=== PATIENT | male | born 1955 | race Caucasian/White ===

== ENCOUNTER 2020-11-23 15:29 | Emergency (ER) | payer SELFPAY ==
[~2020-11-23] VITALS: Ht 172.7 cm; Wt 102.1 kg
[2020-11-23 15:31] VITALS: Ht 172.7 cm; Wt 102.1 kg
[2020-11-23 17:26] VITALS: BP 141/75
== END 2020-11-23 17:26 | disposition home or self-care (01) ==
LOC: ED 15:29
DX: U07.1 COVID-19 (principal); J12.89 Other viral pneumonia